=== PATIENT | male | born 1960 | race Caucasian/White ===

== ENCOUNTER 2021-05-07 15:51 | Emergency (ER) | payer BC ==
[~2021-05-07] VITALS: Ht 177.8 cm; Wt 95.5 kg
[2021-05-07 17:07] LABS: BASOPHILS # (AUTO) 0.1 X10'3 (0-0.2); BASOPHILS % (AUTO) 1.3 % (0-1); EOSINOPHILS # (AUTO) 0.2 X10'3 (0-0.9); EOSINOPHILS % (AUTO) 2.3 % (0-6); HEMATOCRIT 38.5 % (42.0-52.0); HEMOGLOBIN 13.1 g/dl (14.0-17.9); LYMPHOCYTES # (AUTO) 2.1 X10'3 (1.1-4.8); LYMPHOCYTES % (AUTO) 28.5 % (21-51); MEAN CORPUSCULAR HGB CONC 34.1 g/dL (33.0-36.5); MEAN CORPUSCULAR VOLUME 88.2 FL (78-98); MONOCYTES # (AUTO) 0.5 X10'3 (0-0.9); MONOCYTES % (AUTO) 6.4 % (2-12); NEUTROPHILS # (AUTO) 4.5 X10'3 (1.8-7.7); NEUTROPHILS % (AUTO) 61.5 % (42-75); PLATELET COUNT 389 X10'3 (140-440); RED BLOOD COUNT 4.37 X10'6 (4.70-6.10); RED CELL DISTRIBUTION WIDTH 13.8 % (11.5-14.5); WHITE BLOOD COUNT 7.3 X10'3 (4.5-11.0)
[2021-05-07 17:18] LABS: D-DIMER 1.75 MG/L FEU (0-0.50)
[2021-05-07 17:23] LABS: ALANINE AMINOTRANSFERASE 58 U/L (12-78); ALBUMIN 3.1 G/DL (3.4-5.0); ALBUMIN/GLOBULIN RATIO 0.8 (1.1-1.5); ALKALINE PHOSPHATASE 78 IU/L (46-116); ANION GAP 13 (8-16); ASPARTATE AMINO TRANSFERASE 27 U/L (10-37); BILIRUBIN,TOTAL 0.4 MG/DL (0.1-1.0); BLOOD UREA NITROGEN 28 MG/DL (7-18); BUN/CREATININE RATIO 29.8 (5.4-32.0); CALCIUM 8.7 MG/DL (8.5-10.1); CHLORIDE 107 MMOL/L (99-107); CREATININE 0.94 MG/DL (0.60-1.10); GLUCOSE 101 MG/DL (70-104); POTASSIUM 3.5 MMOL/L (3.5-5.1); SODIUM 144 MMOL/L (135-145); TOTAL PROTEIN 7.2 G/DL (6.4-8.2); eGFR 82 ML/MIN
[2021-05-07] MEDS ORDERED: iohexol 350MG/ML 100ml bottle IV ONE (17:44)
[2021-05-07 20:06] VITALS: BP 130/80
== END 2021-05-07 20:13 | disposition home or self-care (01) ==
LOC: ER 15:52
DX: J12.9 Viral pneumonia, unspecified (principal); R06.00 Dyspnea, unspecified
CPT/HCPCS: 36415; 71045; 71275; 80053; 83880; 85025; 85379; 93005; 99285; Q9967